=== PATIENT | female | born 1940 | race Caucasian/White ===

== ENCOUNTER 2022-06-24 11:15 | Outpatient (RCR) | payer MEDICARE, BC, SELFPAY | END 2022-09-18 13:42 | disposition home or self-care (01) | PROVIDERS: Visit Provider Family Medicine | DX: M54.12 Radiculopathy, cervical region (principal); Z51.89 Encounter for other specified aftercare | CPT/HCPCS: 97110; 97112; 97140; 97162 ==

== ENCOUNTER 2023-03-03 15:32 | Emergency (ER) | payer MEDICARE, BC, SELFPAY ==
[2023-03-03 15:46] VITALS: BP 157/76; PULSE 70; RESP 18; TEMP 36.1; O2SAT 95; BMI 21.9
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
--- NOTE | 2023-03-03 17:16 | CRLHL7_ITS ---
For Patients: As a result of the Cures Act, medical imaging exams and procedure reports are released immediately into your electronic medical record. You may view this report before your referring provider. If you have questions, please contact your health care provider. INDICATION: Fall. Pain. COMPARISON: None. TECHNIQUE: Left tibia fibula 2 views. IMPRESSION: No acute fracture. Alignment is normal. Joint spaces are maintained. Soft tissues are unremarkable. Dictated by Alexsander Pickering MD @ 03/03/2023 6:23:26 PM (Electronically Signed)
--- NOTE | 2023-03-03 17:17 | CRLHL7_ITS ---
For Patients: As a result of the Century Cures Act, medical imaging exams and procedure reports are released immediately into your electronic medical record. You may view this report before your referring provider. If you have questions, please contact your health care provider. INDICATION: Fall, right anterior chest wall pain TECHNIQUE: Chest 2 views. COMPARISON: None. FINDINGS: Cardiovascular and mediastinum: Heart size and vasculature are normal in caliber and appearance. Mediastinum is within normal limits. Lungs and pleural spaces: Lungs are clear. No sign of infiltrate or mass. No sign of pleural effusion. No pneumothorax. Bones and soft tissues: No significant findings. IMPRESSION: Unremarkable chest. Dictated by: Alexsander Renae MD @ 03/03/2023 17:56:29 (Electronically Signed)
--- NOTE | 2023-03-03 18:48 | ED.NURSE ---
pt hand off report given to next oncoming nurse.
== END 2023-03-03 19:07 | disposition home or self-care (01) ==
PROVIDERS: Emergency Provider Family Medicine
DX: S01.111A Laceration without foreign body of right eyelid and periocular area, initial encounter (principal); R07.89 Other chest pain; S80.12XA Contusion of left lower leg, initial encounter; V19.3XXA Pedal cyclist (driver) (passenger) injured in unspecified nontraffic accident, initial encounter
CPT/HCPCS: 12011; 71046; 73590; 99283; 99284

== ENCOUNTER 2023-07-04 10:00 | Outpatient (RCR) | payer MEDICARE, BC, SELFPAY | END 2023-11-01 23:59 | disposition home or self-care (01) | PROVIDERS: Visit Provider Family Medicine | DX: V19.9XXD Pedal cyclist (driver) (passenger) injured in unspecified traffic accident, subsequent encounter (principal); M79.604 Pain in right leg; M79.605 Pain in left leg; M54.50 Low back pain, unspecified; M25.69 Stiffness of other specified joint, not elsewhere classified; M62.81 Muscle weakness (generalized); Z51.89 Encounter for other specified aftercare | CPT/HCPCS: 97110; 97140; 97162 ==

== ENCOUNTER 2024-12-03 08:56 | Outpatient (CLI) | payer MEDICARE, BC, SELFPAY ==
--- NOTE | 2024-12-03 09:15 | CRLHL7_ITS ---
For Patients: As a result of the Century Cures Act, medical imaging exams and procedure reports are released immediately into your electronic medical record. You may view this report before your referring provider. If you have questions, please contact your health care provider. Indication: Neck pain. Technique: MRI of the cervical spine was performed without the use of intravenous contrast. Comparison: Cervical spine MRI 09/05/2011. Findings: Postsurgical changes of mature ACDF at C5-C7. Disc space heights are preserved without evidence of fracture. Moderate reversal of the cervical lordosis. No abnormal cord signal. C2-3: No spinal canal narrowing. Mild right neural foraminal narrowing. Left neural foramen is patent. C3-4: Minimal spinal canal narrowing. Moderate right and mild left neural foraminal narrowing secondary to uncovertebral joint and facet arthropathy. Progressed. C4-5: Trace anterolisthesis. No spinal canal narrowing. [id number] left without right neural foraminal narrowing. C5-6: Postsurgical change. No spinal canal narrowing. [id number] right and mild left neural foraminal narrowing. C6-7: Postsurgical change. Mild neural foraminal narrowing. C7-T1: Disc bulge results in [id number] spinal canal narrowing. Moderately severe neural foraminal narrowing. Progressed. Impression: 1. Postsurgical changes of mature ACF at C5-C7. 2. At C7-T1, progressed mild to moderate spinal canal with moderately severe neural foraminal stenosis. 3. At C3-4, progressed moderate right neural foraminal narrowing. 4. No abnormal cord signal. Dictated by Gurwinder Sims MD @ 12/03/2024 3:58:40 PM (Electronically Signed)
== END 2024-12-03 08:57 | disposition home or self-care (01) ==
LOC: MRI 08:58
PROVIDERS: PCP Family Medicine; Visit Provider Family Medicine
DX: M54.2 Cervicalgia (principal); M48.03 Spinal stenosis, cervicothoracic region; M50.21 Other cervical disc displacement, high cervical region
CPT/HCPCS: 72141

== ENCOUNTER 2025-03-23 10:00 | Outpatient (RCR) | payer MEDICARE, BC, SELFPAY | END 2025-07-20 08:58 | disposition home or self-care (01) | PROVIDERS: Visit Provider Family Medicine | DX: M54.2 Cervicalgia (principal); Z51.89 Encounter for other specified aftercare | CPT/HCPCS: 97110; 97140; 97162 ==

== ENCOUNTER 2025-06-09 13:00 | Outpatient (RCR) | payer MEDICARE, BC, SELFPAY | END 2025-07-14 10:15 | disposition home or self-care (01) | PROVIDERS: PCP Family Medicine; Visit Provider Family Medicine | DX: M54.2 Cervicalgia (principal); Z51.89 Encounter for other specified aftercare | CPT/HCPCS: 97110; 97112; 97140; 97161 ==